=== PATIENT | male | born 1975 | race Hispanic/Latino ===

== ENCOUNTER 2017-04-18 23:06 | Emergency (ER) | payer OTHER ==
[2017-04-18 23:26] VITALS: O2SAT 98
--- NOTE | 2017-04-18 23:44 | ED PDOC ---
HPI: Chest Pain <Hakan Desai - Last Filed: 04/19/17 01:00> Chief Complaint (Provider): chest pain History Per: Other (girlfriend) Onset/Duration Of Symptoms: Sudden Onset (9pm) Quality: Pressure Associated Symptoms: Nausea, Dyspnea, Diaphoresis. denies: Syncope <Natali Mohamud - Last Filed: 04/20/17 00:03> Time Seen by Provider: 04/18/17 23:19 Chief Complaint (Nursing): Chest Pain Additional Complaint(s): Sudden onset Episodes of convulsions/diffuse muscle spasms at 9pm while lying in bed with girlfriend. Associated LEFT sided chest pressure and LEFT arm/face parasthesias Over course of this afternoon/evening pt had drunk one beer, taken cialis, and 4 pills of marijuana (40-60mg each) recreationally. Took xanax 0.5 at 10pm with no relief. Denies cocaine use. Also drank heavily yesterday. PMD: in [facility] (Natali Mohamud) Past Medical History <Hakan Desai - Last Filed: 04/19/17 01:00> Reviewed: Historical Data, Nursing Documentation, Vital Signs - Medical History PMH: Anxiety, Depression, HTN - Surgical History Other surgeries: bilateral shoulder surgery for dislocations - Family History Family History: States: Hypertension - Social History Current smoker - smoking cessation education provided: Yes Alcohol: Social Drugs: Cannabis, Prescription medications <Natali Mohamud - Last Filed: 04/20/17 00:03> Vital Signs: Last Vital Signs Temp 98.2 F 04/19/17 02:38 Pulse 80 04/19/17 02:38 Resp 16 04/19/17 02:38 BP 111/59 L 04/19/17 02:38 Pulse Ox 98 04/19/17 05:56 - Allergies Allergies/Adverse Reactions: Allergies Allergy/AdvReac Type Severity Reaction Status Date / Time No Known Allergies Allergy Verified 04/18/17 23:32 Review of Systems Review Of Systems: ROS cannot be obtained secondary to pt's inabilty to answer questions. (but obtained some from girlfriend) Cardiovascular: Positive for: Chest Pain, Light Headedness Respiratory: Positive for: Shortness of Breath Neurological: Positive for: Dizziness Psych: Positive for: Anxiety <Natali Mohamud - Last Filed: 04/20/17 00:03> Physical Exam - Reviewed Nursing Documentation Reviewed: Yes Vital Signs Reviewed: Yes - Physical Exam Appears: Positive for: Uncomfortable, In Acute Distress Head Exam: Positive for: ATRAUMATIC, NORMOCEPHALIC Skin: Positive for: Warm, Dry Eye Exam: Positive for: EOMI, PERRL ENT: Positive for: Other (dry muc memb) Neck: Positive for: Painless ROM, Supple Cardiovascular/Chest: Positive for: Regular Rate, Rhythm, Chest Non Tender. Negative for: Murmur Respiratory: Positive for: Normal Breath Sounds. Negative for: Wheezing, Respiratory Distress Gastrointestinal/Abdominal: Positive for: Soft. Negative for: Tenderness Back: Positive for: Normal Inspection. Negative for: Vertebral Tenderness Extremity: Positive for: Normal ROM. Negative for: Deformity Lymphatic: Negative for: Adenopathy Neurologic/Psych: Positive for: Oriented, Mood/Affect (mildly slurred speech), Other (tremorous, slurred speech). Negative for: Motor/Sensory Deficits <Natali Mohamud - Last Filed: 04/20/17 00:03> - Laboratory Results Result Diagrams: 04/18/17 23:39 04/18/17 23:39 <Hakan Desai - Last Filed: 04/19/17 01:00> - Laboratory Results Result Diagrams: 04/18/17 23:39 04/18/17 23:39 - ECG O2 Sat by Pulse Oximetry: 98 <Natali Mohamud - Last Filed: 04/20/17 00:03> Disposition <Hakan Desai - Last Filed: 04/19/17 01:00> - Disposition Disposition: Transfer of Care Disposition Time: 00:00 Patient Signed Over To: Hakan Desai <Natali Mohamud - Last Filed: 04/20/17 00:03> - Clinical Impression Clinical Impression: Chest pain - Disposition Condition: FAIR
[2017-04-19 00:05] LABS: BASO # 0.1 K/uL (0.0-0.2); BASO % 0.9 % (0.0-2.0); EOS # 0.3 K/uL (0.0-0.7); EOS % 3.6 % (0.0-4.0); HEMATOCRIT 40.9 % (35.0-51.0); LYMPH # 0.9 K/uL (1.0-4.3); LYMPH % 10.9 % (20.0-40.0); MEAN CELL VOLUME 90.7 fl (80.0-94.0); MEAN CORPUSCULAR HEMOGLOBIN 29.9 pg (27.0-31.0); MEAN PLATELET VOLUME 9.4 fl (7.2-11.7); MONO # 0.8 K/uL (0.0-0.8); NEUT # 6.2 K/uL (1.8-7.0); NEUT % 74.6 % (50.0-75.0); NRBC % 0.1 % (0.0-0.0); RED CELL DISTRIBUTION WIDTH 13.4 % (11.5-14.5); WHITE BLOOD COUNT 8.3 K/uL (4.8-10.8)
[2017-04-19 00:10] LABS: ALB/GLOB RATIO 1.6 (1.0-2.1); ALCOHOL SERUM < 10 mg/dl (0-10); ALKALINE PHOSPHATASE 55 U/L (38-126); ALT/SGPT 30 U/L (21-72); AST/SGOT 28 U/L (17-59); BILIRUBIN,TOTAL 0.3 mg/dl (0.2-1.3); BLOOD UREA NITROGEN 21 mg/dl (9-20); CARBON DIOXIDE 23 mmol/L (22-30); CHLORIDE 104 mmol/L (98-107); GFR AFRICAN-AMERICAN > 60; GLUCOSE,RANDOM 149 mg/dL (75-110); MAGNESIUM 2.1 MG/DL (1.6-2.3); PHOSPHOROUS 3.7 mg/dl (2.5-4.5); POTASSIUM 3.6 MMOL/L (3.6-5.0); SODIUM 138 mmol/l (132-148); TOTAL PROTEIN 7.1 G/DL (6.3-8.2)
[2017-04-19 01:00] LABS: PARTIAL THROMBOPLASTIN TIME 24.4 SECONDS (23.3-32.5)
--- NOTE | 2017-04-19 01:09 | ED PDOC ---
- Laboratory Results Result Diagrams: 04/18/17 23:39 04/18/17 23:39 - ECG O2 Sat by Pulse Oximetry: 98 Medical Decision Making Medical Decision Making: Patient signed out to provider from Dr. Natali Mohamud at [address] of the head. 0013 CT Head Without Intravenous Contrast IMPRESSION: No acute findings. Urine drug screen is significantly positive for cannabis. Patient reports his symptoms have completely resolved. Patient was advised to remain in hospital for chest pain observation given his substance abuse and hypertension. He declines to stay for further testing and evaluation and is leaving against medical advice. Dx: Chest Pain Condition: Fair This patient is choosing to leave against medical advice. The EP has personally explained to the patient that choosing to do so may result in permanent bodily harm or . The EP discussed at great length that without further evaluation and monitoring there may be unforeseen circumstances and/or deterioration causing permanent bodily harm or as a result of their choice. The patient verbalized these risks back to the physician in laymans terms. The patient is alert, oriented, and shows the mental capacity to make clear decisions regarding the patients health care at this time. The patient continues to wish to leave against medical advice. In light of the patients decision to leave AMA, follow-up has been arranged and the patient is aware of the importance of following up as instructed. The patient has been advised that they should return to the ED immediately if they change their mind at any time, or if their condition begins to change or worsen in any way. Scribe Attestation Documented by Dot Blank acting as a scribe for Hakan Desai MD. Provider Attestation: All medical record entries made by the Scribe were at my direction and personally dictated by me. I have reviewed the chart and agree that the record accurately reflects my personal performance of the history, physical exam, medical decision making, and the department course for this patient. I have also personally directed, reviewed, and agree with the discharge instructions and disposition. Disposition Counseled Patient/Family Regarding: Studies Performed, Diagnosis - Clinical Impression Clinical Impression: Chest pain - POA Present On Arrival: None - Disposition Disposition: AGAINST MEDICAL ADVICE Disposition Time: 02:30 Condition: FAIR
[2017-04-19 02:40] VITALS: BP 111/59; RESP 16; TEMP 98.2
[2017-04-19 02:43] VITALS: PULSE 78
--- NOTE | 2017-04-19 08:19 | CT ---
PROCEDURE: CT HEAD WITHOUT CONTRAST. HISTORY: DIZZINESS HEADACHE COMPARISON: None available. TECHNIQUE: Axial computed tomography images were obtained through the head/brain without intravenous contrast. Radiation dose: Total exam DLP = 835.06 mGy-cm. This CT exam was performed using one or more of the following dose reduction techniques: Automated exposure control, adjustment of the mA and/or kV according to patient size, and/or use of iterative reconstruction technique. FINDINGS: HEMORRHAGE: No intracranial hemorrhage. BRAIN: No mass effect or edema. No atrophy or chronic microvascular ischemic changes. VENTRICLES: Unremarkable. No hydrocephalus. CALVARIUM: Unremarkable. PARANASAL SINUSES: Unremarkable as visualized. No significant inflammatory changes. MASTOID AIR CELLS: Unremarkable as visualized. No inflammatory changes. OTHER FINDINGS: None. IMPRESSION: No acute intracranial abnormalities. No significant findings to account for the clinical presentation. Concordant results (preliminary interpretation) provided by [facility]. Procedure Completed: 00:01. Preliminary ([facility]) Report: Dictated and Authenticated: [id number]. Final Interpretation: [id number]. April 19, 2017.
--- NOTE | 2017-04-19 08:49 | RAD ---
HISTORY: Chest pain. COMPARISON: No prior. FINDINGS: LUNGS: No active pulmonary disease. PLEURA: No significant pleural effusion identified, no pneumothorax apparent. CARDIOVASCULAR: Normal. OSSEOUS STRUCTURES: No significant abnormalities. VISUALIZED UPPER ABDOMEN: Normal. OTHER FINDINGS: None. IMPRESSION: No active disease.
--- NOTE | 2017-04-19 19:11 | CARD ---
APPROVED REPORT EKG Measurement Heart [id number] <Conclusion> Normal sinus rhythm Nonspecific ST and T wave abnormality Abnormal ECG
--- NOTE | 2017-04-19 19:12 | CARD ---
APPROVED REPORT EKG Measurement Heart [id number] MT [id number] <Conclusion> Sinus tachycardia Possible Left atrial enlargement Left ventricular hypertrophy T wave abnormality, consider inferior ischemia T wave abnormality, consider anterolateral ischemia Abnormal ECG
== END 2017-04-19 02:47 | disposition left against medical advice (07) ==
LOC: H.ER 23:06
DX: R07.9 Chest pain, unspecified (principal); R11.0 Nausea; F41.9 Anxiety disorder, unspecified; I10 Essential (primary) hypertension; F17.200 Nicotine dependence, unspecified, uncomplicated; R42 Dizziness and giddiness